=== PATIENT | female | born 1980 | race Caucasian/White ===

== ENCOUNTER 2020-11-16 00:59 | Emergency (ER) | payer BC | END 2020-11-16 05:55 | disposition home or self-care (01) | LOC: ED 00:59 | DX: G43.909 Migraine, unspecified, not intractable, without status migrainosus (principal) ==

== ENCOUNTER → 2020-11-24 | Outpatient (CLI) | payer BC | END | disposition home or self-care (01) | LOC: RAD 16:52 | PROVIDERS: ATTEND Chiropractor | DX: M54.2 Cervicalgia (principal) ==